=== PATIENT | female | born 1975 | race Caucasian/White ===

== ENCOUNTER 2017-04-29 11:49 | Emergency (ER) | payer BC ==
[~2017-04-29] VITALS: Ht 147.3 cm; Wt 44.0 kg
[2017-04-29] MEDS ORDERED: ULTRAM50 M1 PO (13:47)
[2017-04-29] MEDS ORDERED: FLEXERIL PO (13:47)
[2017-04-29 14:14] VITALS: BP 125/90
== END 2017-04-29 14:13 | disposition home or self-care (01) | DRG 552 ==
LOC: ED 11:49
DX: M47.816 Spondylosis without myelopathy or radiculopathy, lumbar region (principal); M54.32 Sciatica, left side; F41.9 Anxiety disorder, unspecified